=== PATIENT | male | born 1975 | race Two or more races ===

== ENCOUNTER 2021-02-27 06:00 | Day surgery (SDC) | payer OTHER ==
[2021-02-27] MEDS ORDERED: NEURONTIN600 M1 PO (09:26)
[2021-02-27] MEDS ORDERED: PERCOCET 5-3251 EACH PO (09:26)
[2021-02-27] MEDS ORDERED: POLY119PG PO (09:26)
== END 2021-02-27 11:10 | disposition home or self-care (01) ==
LOC: CIR.AMB 06:00
PROVIDERS: ATTEND Surgery
DX: K42.0 Umbilical hernia with obstruction, without gangrene (principal); Z20.822 Contact with and (suspected) exposure to COVID-19